=== PATIENT | female | born 1970 | race American Indian/Alaskan Native ===

== ENCOUNTER 2017-09-01 06:08 | Observation (INO) | payer BC, MEDICARE ==
--- NOTE | 2017-08-30 11:49 | Anesthesia Consultation ---
Anesthesia Consult and Med Hx Date of service: 08/30/17 - Airway Anesthetic Teeth Evaluation: Good, Chipped (top right molar) ROM Head & Neck: Adequate Mental/Hyoid Distance: Adequate Mallampati Class: Class II Intubation Access Assessment: Probably Good - Pulmonary Exam CTA: Yes - Cardiac Exam Cardiac Exam: RRR - Pre-Operative Health Status ASA Pre-Surgery Classification: ASA2 Proposed Anesthetic Plan: General Nerve Block: TAP - Pulmonary Hx Smoking: Yes (FORMER, QUIT 2014, <1PPD) - Central Nervous System Hx Back Pain: Yes (S/P BACK SURGERY FOR AV MALFORMATION) - Gastrointestinal Hx Gastroesophageal Reflux Disease: Yes - Hematic Hx Anemia: Yes - Other Systems Hx Alcohol Use: Yes (occas) Hx Cancer: No - Additional Comments Anesthesia Medical History Comments: PONV
[2017-08-30 12:09] LABS: Basophils % (Auto) 0.6 % (0.0-1.8); Eosinophils % (Auto) 1.1 % (0.0-4.3); Hematocrit 36.5 % (30.3-42.9); Hemoglobin 12.2 gm/dl (10.1-14.3); Mean Corpuscular HGB Conc 33 % (30-34); Mean Corpuscular Hemoglobin 29 pg (28-32); Mean Corpuscular Volume 87 fl (79-97); Platelet Count 265 K/mm3 (140-440); Red Blood Count 4.22 M/mm3 (3.65-5.03); Red Cell Distribution Width 13.4 % (13.2-15.2); White Blood Count 4.5 K/mm3 (4.5-11.0)
--- NOTE | 2017-08-31 22:40 | History and Physical Report ---
History of Present Illness Date of examination: 08/31/17 Date of admission: 09/01/2017 Chief complaint: dysfunctional bleeding and fibroids History of present illness: 47y/o with a history of uterine fibroids. The most recent ultrasound demonstrated the largest myoma being 4.0cm. She complains of heavy painful menses. She has elected for surgical management of her symptoms. Patient has been reassessed/reevaluated/re-examined. H&P has been reviewed. No interval changes. Past History Past Medical History: other (scoliosis) Past Surgical History: other (back surgery) [employer] History: fibroids Social history: single - Obstetrical History : 3 Para: 3 Hx # Term Pregnancies: 3 Number of Pregnancies: 0 Spontaneous Abortions: 0 Induced : 0 Number of Living Children: 3 Medications and Allergies Allergies Allergy/AdvReac Type Severity Reaction Status Date / Time hydrocodone Allergy Rash Verified 08/26/17 11:54 Home Medications Medication Instructions Recorded Confirmed Last Taken Type Gabapentin [Neurontin] 800 mg PO TID 08/26/17 08/26/17 Unknown History Multivitamin [Multiple Vitamins] 1 each PO DAILY 08/26/17 08/26/17 Unknown History Pantoprazole [Protonix] 40 mg PO QDAY 08/26/17 08/26/17 Unknown History Active Meds: Active Medications Celecoxib (Celebrex) 200 mg PO PREOP NR Stop: 09/01/17 23:59 Famotidine (Pepcid) 20 mg PO PREOP NR Stop: 09/01/17 23:59 Fentanyl (Sublimaze) 100 mcg IV ONCE ONE Stop: 09/01/17 06:01 Gabapentin (Neurontin) 600 mg PO PREOP NR Stop: 09/01/17 23:59 Lactated Ringer's (Lactated Ringers) 1,000 mls @ 75 mls/hr IV DIRECT DIOR Midazolam HCl (Versed) 2 mg IV PREOP NR Stop: 09/01/17 23:59 Scopolamine (Transderm-Scop) 1 each TD PREOP NR Stop: 09/04/17 23:59 Review of Systems All systems: negative Genitourinary: vaginal bleeding, pelvic pain - Physical Exam Breasts: Positive: deferred Cardiovascular: Regular rate Lungs: Positive: Clear to auscultation Abdomen: Positive: normal appearance Results Result Diagrams: 08/30/17 11:30 All other labs normal. Assessment and Plan - Patient Problems (1) Leiomyoma Current Visit: Yes Status: Acute Plan to address problem: proceed with a robotic hysterectomy (2) Menorrhagia Current Visit: Yes Status: Acute (3) Dysmenorrhea Current Visit: Yes Status: Acute
[~2017-09-01 06:08] MED LIST: ANCEF/STERILE WATER 2 GM/20 ML 2 GM/20 ML SYRINGE IV SCH; LACTATED RINGERS 1,000 ML IV SCH; NEURONTIN PO NR; PEPCID PO NR; SUBLIMAZE IV ONE; TRANSDERM-SCOP TD NR; VERSED IV NR
[2017-09-01] MEDS ORDERED: NACL BACTERIOSTATIC INFILTRATI ONE (06:54)
[2017-09-01] MEDS ORDERED: XYLOCAINE 1% 20 mL ONE (07:24)
[2017-09-01] MEDS ORDERED: DECADRON ONE ×2 (07:24→08:51)
[2017-09-01] MEDS ORDERED: MARCAINE 0.5% 30 ML INFILTRATI ONE ×2 (07:25→07:26)
[2017-09-01] MEDS ORDERED: CLONIDINE 1,000 MCG/10 ML VIAL EP ONE (07:26)
[2017-09-01] MEDS ORDERED: XYLOCAINE MPF 2% ONE (07:38)
[2017-09-01] MEDS ORDERED: DILAUDID ONE (07:38)
[2017-09-01] MEDS ORDERED: ZEMURON IV ONE (07:38)
[2017-09-01] MEDS ORDERED: DIPRIVAN 10 MG/ML IV ONE (07:39)
[2017-09-01] MEDS ORDERED: THROMBIN (BOVINE) TP ONE ×2 (07:45→09:31)
[2017-09-01] MEDS ORDERED: CALCIUM CHLORIDE IV ONE (07:45)
[2017-09-01] MEDS ORDERED: NEOSPORIN GU IR ONE ×2 (07:45→09:30)
[2017-09-01] MEDS ORDERED: GELFOAM POWDER 1GM MM ONE ×2 (07:50→09:31)
[2017-09-01] MEDS ORDERED: ZOFRAN ONE (08:51)
[2017-09-01] MEDS ORDERED: NEOSTIGMINE ONE (08:51)
[2017-09-01] MEDS ORDERED: ROBINUL ONE (08:52)
[2017-09-01] MEDS ORDERED: NACL 0.9% IR ONE ×2 (09:30)
[2017-09-01] MEDS ORDERED: NARCAN 0.4 MG/1 ML IV PRN (10:04)
[2017-09-01] MEDS ORDERED: ZOFRAN IV PRN ×2 (10:07→11:26)
[2017-09-01] MEDS ORDERED: PERCOCET 5/325 PO PRN ×2 (10:07→11:26)
--- NOTE | 2017-09-01 10:12 | Operative Report ---
Operative Report Operative Report: Date of surgery: 09/01/2017 Preoperative diagnoses: Leiomyoma; dysfunctional uterine bleeding; dysmenorrhea Postoperative diagnoses: Same as above Procedure: Robotic hysterectomy and bilateral salpingo-oophorectomy Surgeon: Linda Lemus M.D. Skirt Trimmer:Victorino Odonnell Anesthesia: Gen. endotracheal anesthesia Estimated blood loss: Less than 100 mL Pathology: Cervix, uterus, leiomyoma, ovaries and tubes Indication: 47-year-old 0-3 with symptomatic uterine fibroids. The patient complained of significant menorrhagia and dysmenorrhea with her menses and has elected to undergo definitive surgical management. Procedure: The patient was taken to the operating room and given general endotracheal anesthesia without complication. She is prepped and draped in a normal sterile fashion. A bivalve speculum was placed in the patient's vagina and a single- tooth tenaculum placed on the anterior lip of the cervix. The uterus was sounded with the uterine sound. A [employer] uterine manipulator was placed in the bivalve speculum was then removed. Attention was then turned to the patient's abdomen where a 12 millimeter supra umbilical skin incision was then made. A Veress needle was placed and peritoneal entry was verified water-filled syringe. Insufflation of the peritoneal cavity was performed with CO2 gas. The 12 mm trocar was then placed under direct visualization. An additional 8 mm trocar was placed on the patient's left and right lateral side just opposite of the supraumbilical trocar. An additional 5 mm right lateral trocar was then placed as the accessory port. The Lenard Holguin device was used to close the fascia of the 12 mm incision. The patient was then placed in steep Trendelenburg. The da Merrill robot was then engaged. A fenestrated forcep was placed in arm 2 and a vessel sealer was placed in arm 1. Dental surgery of the patient's abdomen and pelvis revealed an enlarged fibroid uterus with normal tubes and ovaries bilaterally. The surgeon then transferred to the surgical console. The infundibulopelvic ligament was then isolated on the right. The vessel sealer was used to coagulate the ligament which was then transected. The tube and ovary were transected from the supply. The round ligament was then coagulated and transected also. The vesicouterine peritoneum was then entered from the patient's right side. The uterine vessels were then coagulated with the vessel sealer. The vessels were then transected . Attention was then turned to the patient's left side where the infundibulopelvic ligament and mesosalpinx were again isolated coagulated and transected. The vesical peritoneum was then entered from the left and joined in the midline. Peritoneum was reflected off of the lower uterine segment. Uterine vessels were then coagulated and then transected. The blood supply to the uterus was adequately contained. A myomectomy had to be performed to remove the largest myoma in order to decompress the uterus. A posterior colpotomy was made. The V care ring was visualized. Posterior colpotomy was created with the monopolar scissors. The incision was continued circumferentially until anterior colpotomy was made. The cervix, and uterus were amputated from the vaginal cuff. The uterus and myoma were then removed along with the tubes and ovaries bilaterally through the vagina and a warm laparotomy sponge was placed and maintain the pneumoperitoneum. The vaginal cuff was then closed in a running fashion with V lock suture. Irrigation of the pelvis was performed. Gelfoam with thrombin was applied to the incision. The skin was then reapproximated with 4-0 Monocryl. The tissue was sent to pathology which included the cervix, uterus, tubes and ovaries. The patient was then successfully extubated. She was then taken to the recovery room in stable condition. All sponge laps and needle counts were correct x2.
[2017-09-01] MEDS ORDERED: MOTRIN PO PRN ×2 (10:30→11:26)
[2017-09-01] MEDS ORDERED: TYLENOL PO PRN ×2 (10:30→11:26)
[2017-09-01] MEDS ORDERED: MORPHINE PCA 30MG/30ML IV SCH (11:00)
[2017-09-01] MEDS ORDERED: D5LR 1,000 ML IV SCH (11:00)
[2017-09-01] MEDS ORDERED: TORADOL IV SCH (11:26)
[2017-09-01] MEDS: TORADOL IV SCH ×2 (11:30→18:32)
[2017-09-01] MEDS: D5LR 1,000 ML IV SCH ×2 (15:31→22:25)
[2017-09-02] MEDS: TORADOL IV SCH ×3 (00:35→10:33)
[2017-09-02 04:09] LABS: Hematocrit 32.5 % (30.3-42.9); Hemoglobin 10.8 gm/dl (10.1-14.3)
[2017-09-02] MEDS: D5LR 1,000 ML IV SCH (04:09)
--- NOTE | 2017-09-02 08:32 | Progress Note ---
Assessment and Plan - Patient Problems (1) Leiomyoma Current Visit: Yes Status: Acute Plan to address problem: Advance diet as tolerated Routine postoperative care Discharge home once the discharge criteria (2) Menorrhagia Current Visit: Yes Status: Acute (3) Dysmenorrhea Current Visit: Yes Status: Acute Subjective - Subjective Date of service: 09/02/17 Interval history: Patient denies any nausea or vomiting. She has tolerated clear diet without complication. She has minimal ambulation in the room. A Wilson has been removed. Patient reports: appetite normal, pain well controlled Objective - Vital Signs Latest vital signs: Vital Signs Temp Pulse Resp BP BP Pulse Ox 09/02/17 06:21 16 09/02/17 05:49 18 09/02/17 05:19 18 09/02/17 04:21 18 09/02/17 04:10 98.3 F 81 20 103/57 09/02/17 02:00 20 09/02/17 01:05 16 09/02/17 00:35 20 09/02/17 00:00 98.2 F 88 20 102/65 09/01/17 20:00 98.6 F 75 20 110/69 09/01/17 19:39 18 09/01/17 15:28 18 09/01/17 13:08 98.2 F 61 20 98/56 09/01/17 13:05 20 09/01/17 12:25 98.1 F 61 16 98/56 100 09/01/17 12:00 97.1 F L 69 14 102/68 99 09/01/17 11:45 70 15 111/76 100 09/01/17 11:30 97.0 F L 73 15 110/64 98 09/01/17 11:15 66 14 114/73 100 09/01/17 11:00 64 14 112/69 100 09/01/17 10:45 65 14 107/71 100 09/01/17 10:40 65 14 106/67 100 09/01/17 10:35 67 15 100/63 97 09/01/17 10:30 96.8 F L 68 18 101/62 96 Intake and Output 09/01/17 09/02/17 09/02/17 22:59 06:59 14:59 Intake Total 1102.5 956.667 Output Total 600 2700 Balance 502.5 -1743.333 Intake: IV 862.5 716.667 D5lr 1,000 ml @ 125 mls/ 862.5 716.667 hr IV [facility] Rx#: [id number] Oral 240 240 Output: Urine 600 2700 Indwelling Catheter 600 2700 Other: Total, Intake Amount 240 240 Total, Output Amount 600 900 Voiding Method Toilet - Exam Abdomen: Present: soft Incision: Present: normal, dry
--- NOTE | 2017-09-02 08:34 | Discharge Summary ---
Providers - Providers Date of Admission: 09/01/17 10:07 Date of discharge: 09/02/17 Attending physician: OSMANY SCHMITZ Hospitalization Reason for admission: other (symptomatic uterine fibroids) Procedure: other (robotic hysterectomy and bilateral salpingo-oophorectomy) Incision: normal Discharge diagnosis: other (symptomatic fibroid uterus) Hospital course: The patient was admitted the day of surgery underwent a robotic hysterectomy and bilateral salpingo-oophorectomy. Please see operative note for details of surgery. Postoperative course was unremarkable. Condition at discharge: Good Disposition: DC-01 TO HOME OR SELFCARE - Discharge Diagnoses (1) Leiomyoma Status: Acute (2) Menorrhagia Status: Acute (3) Dysmenorrhea Status: Acute Plan - Discharge Medications Prescriptions: Ibuprofen [Motrin] 800 mg PO Q8HR PRN #60 tablet PRN Reason: Pain Oxycodone HCl/Acetaminophen [Percocet 7.5/325 mg] 1 each PO Q6HR PRN #45 tablet PRN Reason: Pain - Provider Discharge Summary Activity: no sex for 6 weeks, no heavy lifting 4 weeks, no strenuous exercise Diet: routine Instructions: routine Additional instructions: [] Smoking cessation referral if applicable(refer to patient education folder for contact #) [] Refer to [facility] Booklet Call your doctor immediately for: * Fever > 100.5 * Heavy vaginal bleeding ( >1 pad per hour) * Severe persistent headache * Shortness of breath * Reddened, hot, painful area to leg or breast * Drainage or odor from incision. * Keep incision clean and dry at all times and follow doctor's instructions regarding bathing/showering Follow-up in 4 weeks - Follow up plan
[2017-09-02 18:48] VITALS: BP 127/91
== END 2017-09-02 17:00 | disposition home or self-care (01) ==
LOC: OR 06:08 → OB 10:07
PROVIDERS: ADMIT Obstetrics & Gynecology; ATTEND Obstetrics & Gynecology
DX: N93.8 Other specified abnormal uterine and vaginal bleeding (principal); D25.1 Intramural leiomyoma of uterus; D25.2 Subserosal leiomyoma of uterus; N94.6 Dysmenorrhea, unspecified; N92.0 Excessive and frequent menstruation with regular cycle
CPT/HCPCS: 36415; 58571; 64450; 84703; 85014; 85018; 85025; 86850; 86900; 86901; 88307; 96374; 96375; 96376; A4217; A4649; G0378; J0690; J0735; J1100; J1170; J1885; J2250; J2270; J2405; J2704; J2710; J3010; J7120; J7121; S2900